=== PATIENT | female | born 1975 | race American Indian/Alaskan Native ===

== ENCOUNTER 2016-09-10 21:30 | Emergency (ER) | payer BC, OTHER ==
[2016-09-10] MEDS ORDERED: methylPREDNISolone Sodium Succinate 125 MG/2 ML SDV IVPUSH ONE (21:36)
[2016-09-10] MEDS ORDERED: Albuterol/Ipratropium 3.0-0.5 MG/3 ML Neb Soln NEB ONE ×2 (21:36→22:25)
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
[2016-09-10 22:11] LABS: CHLORIDE,CL 107 mmol/L (101-111); SODIUM,NA 141 mmol/L (135-145)
[2016-09-10] MEDS ORDERED: Sodium Chloride 0.9% 1,000 ML IV ONE (22:27)
[2016-09-10] MEDS ORDERED: Albuterol 6.7 GM Inhaler INH ONE ×2 (22:52)
[2016-09-10 23:00] VITALS: BP 108/69
--- NOTE | 2016-09-14 11:21 | EKG ---
09/10/2016 - AIDEN FERRARA - TIME: 2135 hours. EKG shows normal sinus rhythm, rate of 58 per minute. There is poor R-wave progression. There is left posterior fascicular block. [facility] /[id number]
== END 2016-09-10 23:12 | disposition home or self-care (01) ==
LOC: DL.ED 21:30
DX: J98.01 Acute bronchospasm (principal); Z91.018 Allergy to other foods; Z79.899 Other long term (current) drug therapy; Z86.2 Personal history of diseases of the blood and blood-forming organs and certain disorders involving the immune mechanism; Z98.890 Other specified postprocedural states; Z90.710 Acquired absence of both cervix and uterus
CPT/HCPCS: 36415; 71020; 80053; 84484; 85025; 85379; 93005; 94640; 96361; 96374; 99285; J2930; J7030; A9270-GY

== ENCOUNTER 2016-09-11 20:21 | Emergency (ER) | payer BC, OTHER ==
[2016-09-11] MEDS ORDERED: methylPREDNISolone Sodium Succinate 125 MG/2 ML SDV IVPUSH ONE (20:31)
[2016-09-11] MEDS ORDERED: Albuterol/Ipratropium 3.0-0.5 MG/3 ML Neb Soln NEB ONE ×2 (20:31→21:16)
[2016-09-11] MEDS ORDERED: Sodium Chloride 0.9% 1,000 ML IV ONE (20:31)
[2016-09-11 20:32] VITALS: BP 125/99
--- NOTE | 2016-09-11 20:34 | EDM.PDOC ---
ED HPI GENERAL MEDICAL PROBLEM - General Stated Complaint: CANT BREATH Time Seen by Provider: 09/11/16 20:32 Source of Information: Reports: Patient History Limitations: Reports: No Limitations - History of Present Illness INITIAL COMMENTS - FREE TEXT/NARRATIVE: was here last night for same. got better s/p IV Rx then had to work. today started feeling SOB returning tried albut inhaler didn't last long. 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 History: Reports: None Neurological History: Reports: None Psychiatric History: Reports: None Endocrine/Metabolic History: Reports: None Hematologic History: Reports: Anemia Immunologic History: Reports: None Oncologic (Cancer) History: Reports: None Dermatologic History: Reports: None - Past Surgical History Female Surgical History: Reports: Section, Hysterectomy Social & Family History - Tobacco Use Smoking Status *Q: Never Smoker Years of Tobacco use: 20 Packs/Tins Daily: 0.3 Second Hand Smoke Exposure: Yes - Caffeine Use Caffeine Use: Reports: Coffee - Recreational Drug Use Recreational Drug Use: No ED ROS GENERAL - Review of Systems Review Of Systems: ROS reveals no pertinent complaints other than HPI. ED EXAM, GENERAL - Physical Exam Exam: See Below Exam Limited By: Uncooperative General Appearance: Alert, WD/WN, Mild Distress, Other (cough spasms) Ears: Hearing Grossly Normal Throat/Mouth: Normal Voice, No Airway Compromise Head: Atraumatic Neck: Non-Tender, Full Range of Motion Respiratory/Chest: Decreased Breath Sounds, Rhonchi, Wheezing. No: Accessory Muscle Use, Retractions, Splinting Cardiovascular: Regular Rate, Rhythm GI/Abdominal: Soft, Non-Tender Neurological: Alert, Oriented, Normal Cognition, Normal Gait, No Motor/Sensory Deficits Psychiatric: Anxious Skin Exam: Warm, Dry Lymphatic: No Adenopathy Course - Vital Signs Last Recorded V/S: Last Vital Signs Temp 36.2 C 09/11/16 20:28 Pulse 70 09/11/16 20:28 Resp 18 09/11/16 20:28 BP 125/99 H 09/11/16 20:28 Pulse Ox 99 09/11/16 20:28 - Orders/Labs/Meds Orders: Active Orders 24 hr Category Date Time Status RT Aerosol Therapy [RC] ASDIRECTED Care 09/11/16 20:32 Active RT Aerosol Therapy [RC] ASDIRECTED Care 09/11/16 21:16 Active Meds: Medications Discontinued Medications Generic Name Dose Route Start Last Admin Trade Name Freq PRN Reason Stop Dose Admin Albuterol/Ipratropium 3 ml 09/11/16 20:31 09/11/16 20:41 Duoneb 3.0-0.5 Mg/3 Ml NEB 09/11/16 20:32 3 ml ONETIME ONE Administration Albuterol/Ipratropium 3 ml 09/11/16 21:16 09/11/16 21:30 Duoneb 3.0-0.5 Mg/3 Ml NEB 09/11/16 21:17 3 ml ONETIME ONE Administration Sodium Chloride 1,000 mls @ 999 mls/hr 09/11/16 20:31 09/11/16 20:50 Normal Saline IV 09/11/16 21:31 999 mls/hr .BOLUS ONE Administration Methylprednisolone Sodium Succinate 125 mg 09/11/16 20:31 09/11/16 20:51 Solu-Medrol IVPUSH 09/11/16 20:32 125 mg ONETIME ONE Administration - Re-Assessments/Exams Free Text/Narrative Re-Assessment/Exam: 09/11/16 21:52 s/p duoneb x2 + IV + solume = much better. wants to go home Departure - Departure Time of Disposition: 21:53 Disposition: Home, Self-Care 01 Condition: Good Clinical Impression: Bronchospasm, acute - Discharge Information Instructions: Bronchospasm, Adult, Jowa-[id number] Forms: ED Department Discharge Additional Instructions: 1) take neb treatment 8 to 12 hours as needed for wheezing 2) recheck if there is any change or concern rx given; duoneb tid to bid prn - My Orders Last 24 Hours: My Active Orders 09/11/16 20:32 RT Aerosol Therapy [RC] ASDIRECTED 09/11/16 21:16 RT Aerosol Therapy [RC] ASDIRECTED - Assessment/Plan Last 24 Hours: My Active Orders 09/11/16 20:32 RT Aerosol Therapy [RC] ASDIRECTED 09/11/16 21:16 RT Aerosol Therapy [RC] ASDIRECTED
[2016-09-11] MEDS ORDERED: Albuterol/Ipratropium 3.0-0.5 MG/3 ML Neb Soln INH ONE (22:00)
[2016-09-11] MEDS ORDERED: Albuterol/Ipratropium 3.0-0.5 MG/3 ML Neb Soln ONE (22:00)
== END 2016-09-11 22:06 | disposition home or self-care (01) ==
LOC: DL.ED 20:21
DX: J98.01 Acute bronchospasm (principal); Z91.018 Allergy to other foods; Z90.710 Acquired absence of both cervix and uterus
CPT/HCPCS: 94640; 96361; 96374; 99284; J2930; J7030

== ENCOUNTER 2016-10-13 20:35 | Emergency (ER) | payer BC, OTHER ==
[2016-10-13] MEDS ORDERED: Lidocaine 1% 30 ML SDV ONE (20:43)
[2016-10-13] MEDS ORDERED: Bacitracin Oint 1 GM U/D Packet TOP ONE (21:14)
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
== END 2016-10-13 21:51 | disposition home or self-care (01) ==
LOC: DL.ED 20:35
DX: S61.210A Laceration without foreign body of right index finger without damage to nail, initial encounter (principal); D64.9 Anemia, unspecified; F17.210 Nicotine dependence, cigarettes, uncomplicated; Z91.018 Allergy to other foods; Z79.899 Other long term (current) drug therapy; W27.0XXA Contact with workbench tool, initial encounter
CPT/HCPCS: 12004; 99282

== ENCOUNTER 2016-11-11 00:01 | Emergency (ER) | payer BC, OTHER ==
[2016-11-11 01:09] LABS: SODIUM,NA 140 mmol/L (135-145)
[2016-11-11 01:12] LABS: CHLORIDE,CL 105 mmol/L (101-111)
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
== END 2016-11-11 01:55 | disposition home or self-care (01) ==
LOC: DL.ED 00:01
DX: S00.03XA Contusion of scalp, initial encounter (principal); S00.431A Contusion of right ear, initial encounter; R07.81 Pleurodynia; V89.2XXA Person injured in unspecified motor-vehicle accident, traffic, initial encounter; F17.210 Nicotine dependence, cigarettes, uncomplicated
CPT/HCPCS: 36415; 70450; 71101; 72125; 80053; 81001; 81025; 82150; 83690; 85025; 99285; G0480

== ENCOUNTER 2016-11-12 01:35 | Emergency (ER) | payer BC, OTHER ==
[2016-11-12] MEDS ORDERED: Acetaminophen/HYDROcodone 325-10 MG Tab PO ONE ×2 (01:51→02:54)
[2016-11-12] MEDS ORDERED: Ondansetron 4 MG Tab.DIS PO ONE (01:51)
[2016-11-12] MEDS ORDERED: Acetaminophen/HYDROcodone 325-5 MG Tab PO ONE (01:54)
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
[2016-11-12] MEDS ORDERED: Acetaminophen/HYDROcodone 325-10 MG Tab ONE (02:54)
[2016-11-12 03:10] VITALS: BP 114/70
== END 2016-11-12 03:10 | disposition home or self-care (01) ==
LOC: DL.ED 01:35
DX: F07.81 Postconcussional syndrome (principal); G44.309 Post-traumatic headache, unspecified, not intractable; Z91.018 Allergy to other foods; F17.210 Nicotine dependence, cigarettes, uncomplicated
CPT/HCPCS: 70450; 99284; A9270

== ENCOUNTER 2019-02-20 02:16 | Emergency (ER) | payer MEDICAID, OTHER ==
[2019-02-20 02:25] VITALS: BP 126/81; PULSE 108
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
== END 2019-02-20 02:53 | disposition home or self-care (01) ==
LOC: DL.ED 02:16
DX: S00.03XA Contusion of scalp, initial encounter (principal); S00.511A Abrasion of lip, initial encounter; F17.210 Nicotine dependence, cigarettes, uncomplicated; Z90.710 Acquired absence of both cervix and uterus; Y04.0XXA Assault by unarmed brawl or fight, initial encounter
CPT/HCPCS: 99283

== ENCOUNTER 2019-12-25 00:11 | Emergency (ER) | payer MEDICAID, OTHER ==
[2019-12-25 00:35] VITALS: BP 129/86; PULSE 80
[2019-12-25 01:55] LABS: ANION GAP 13.7 mEq/L (7-13); CHLORIDE,CL 103 mmol/L (98-107); SODIUM,NA 140 mmol/L (136-145)
[2019-12-25] MEDS ORDERED: Amoxicillin/Clavulanate K 500-125 MG Tab PO ONE (01:58)
[2019-12-25] MEDS ORDERED: methylPREDNISolone Sodium Succinate 125 MG/2 ML SDV IM ONE (01:58)
--- NOTE | 2019-12-25 02:04 | EDM.PDOC ---
ED HPI GENERAL MEDICAL PROBLEM - General Chief Complaint: Respiratory Problem Stated Complaint: SOB, HEAD COLD Time Seen by Provider: 12/25/19 00:35 Source of Information: Reports: Patient History Limitations: Reports: No Limitations - History of Present Illness INITIAL COMMENTS - FREE TEXT/NARRATIVE: This 44 yo female patient reports to the ED with head congestion, cough and i ncreased shortness of breath over the past 2-3 days. The patient reports her shortness of breath has been getting worse. Duration: Day(s):, Constant, Getting Worse Location: Reports: Head, Chest Quality: Reports: Ache, Dull Severity: Moderate Improves with: Reports: None Worsens with: Reports: None Context: Reports: Other Associated Symptoms: Reports: No Other Symptoms Upper Back Pain Score (Numeric/FACES): 1 - Related Data Allergies Allergy/AdvReac Type Severity Reaction Status Date / Time tomatoe Allergy Rash Uncoded 12/25/19 00:35 Home Meds: Home Meds Multivitamin [One Daily Multivitamin] 1 each PO DAILY 09/11/16 [History] DULoxetine [Cymbalta] 60 mg PO DAILY 02/20/19 [History] Past Medical History - Past Health History Medical/Surgical History: Denies Medical/Surgical History HEENT History: Reports: None Cardiovascular History: Reports: None Respiratory History: Reports: None Gastrointestinal History: Reports: None Genitourinary History: Reports: None 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: 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 History: Reports: None Neurological History: Reports: Brain Injury Psychiatric History: Reports: None Endocrine/Metabolic History: Reports: None Hematologic History: Reports: Anemia Immunologic History: Reports: None Oncologic (Cancer) History: Reports: None Dermatologic History: Reports: None - Past Surgical History Head Surgeries/Procedures: Reports: None Female Surgical History: Reports: Section, Hysterectomy Social & Family History - Family History Family Medical History: Noncontributory - Tobacco Use Tobacco Use Status *Q: Current Every Day Tobacco User Years of Tobacco use: 20 Packs/Tins Daily: 0.5 Second Hand Smoke Exposure: Yes - Caffeine Use Caffeine Use: Reports: None - Recreational Drug Use Recreational Drug Use: No ED ROS GENERAL - Review of Systems Review Of Systems: Comprehensive ROS is negative, except as noted in HPI. ED EXAM, GENERAL - Physical Exam Exam: See Below Exam Limited By: No Limitations General Appearance: Alert, WD/WN, Mild Distress Eye Exam: Bilateral Eye: EOMI, Normal Inspection, PERRL Ears: Normal External Exam, Normal Canal, Hearing Grossly Normal, Normal TMs Nose: Normal Inspection, Normal Mucosa, No Blood Throat/Mouth: Normal Inspection, Normal Lips, Normal Teeth, Normal Gums, Normal Oropharynx, Normal Voice, No Airway Compromise Head: Sinus Tenderness Neck: Normal Inspection, Supple, Non-Tender, Full Range of Motion Respiratory/Chest: Decreased Breath Sounds, Wheezing Cardiovascular: Normal Peripheral Pulses, Regular Rate, Rhythm, No Edema, No Gallop, No JVD, No Murmur, No Rub GI/Abdominal: Normal Bowel Sounds, Soft, Non-Tender, No Organomegaly, No Distention, No Abnormal Bruit, No Mass (Female) Exam: Deferred Rectal (Female) Exam: Deferred Back Exam: Normal Inspection, Full Range of Motion, NT Extremities: Normal Inspection, Normal Range of Motion, Non-Tender, Normal Capillary Refill, No Pedal Edema Neurological: Alert, Oriented, CN II-XII Intact, Normal Cognition, Normal Gait, Normal Reflexes, No Motor/Sensory Deficits Psychiatric: Normal Affect, Normal Mood Skin Exam: Warm, Dry, Intact, Normal Color, No Rash Lymphatic: No Adenopathy Course - Vital Signs Last Recorded V/S: Last Vital Signs Temp 36.4 C 12/25/19 00:29 Pulse 80 12/25/19 00:29 Resp 18 12/25/19 00:29 BP 129/86 12/25/19 00:29 Pulse Ox 98 12/25/19 00:29 - Orders/Labs/Meds Orders: Active Orders 24 hr Category Date Time Status Chest 2V [CR] Urgent Exams 12/25/19 00:49 Ordered CULTURE BLOOD [BC] Stat Lab 12/25/19 01:20 Received Amoxicillin/Clavulanate K [Augmentin 500 MG\125 MG] Med 12/25/19 01:58 Once 1 tab PO ONETIME ONE methylPREDNISolone Sod Succ [Solu-MEDROL] Med 12/25/19 01:58 Once 125 mg IM ONETIME ONE Labs: Laboratory Tests 12/25/19 12/25/19 12/25/19 Range/Units 00:53 01:20 01:20 WBC 9.6 (5.0-10.0) 10^3/uL RBC 4.39 (4.2-5.4) 10^6/uL Hgb 14.5 (12.0-16.0) g/dL Hct 40.9 (37.0-47.0) % MCV 93.2 (80-100) fL MCH 33.0 (27.0-34.0) pg MCHC 35.5 H (33.0-35.0) g/dL Plt Count 265 (150-450) 10^3/uL Neut % (Auto) 56.6 (42.2-75.2) % Lymph % (Auto) 28.1 (20.5-50.1) % [place] % (Auto) 9.4 H (2-8) % Eos % (Auto) 5.5 H (1.0-3.0) % Baso % (Auto) 0.4 (0.0-1.0) % Sodium 140 (136-145) mmol/L Potassium 3.7 (3.5-5.1) mmol/L Chloride 103 (98-107) mmol/L Carbon Dioxide 27 (21-32) mmol/L Anion Gap 13.7 H (7-13) mEq/L BUN 15 (7-18) mg/dL Creatinine 0.52 L (0.55-1.02) mg/dL Est Cr Clr Drug Dosing 116.73 mL/min Estimated GFR (MDRD) > 60 BUN/Creatinine Ratio 28.8 (No establ ref range) Glucose 100 H (74-99) mg/dL Lactic Acid (0.4-2.0) mmol/L Calcium 9.1 (8.5-10.1) mg/dL Total Bilirubin 0.5 (0.2-1.0) mg/dL AST 19 (15-37) U/L ALT 39 (14-59) U/L Alkaline Phosphatase 124 H (46-116) U/L Total Protein 7.3 (6.4-8.2) g/dL Albumin 4.2 (3.4-5.0) g/dL Globulin 3.1 Albumin/Globulin Ratio 1.4 SARS CoV-2 RNA Rapid TREVON Negative (NEGATIVE) 12/25/19 Range/Units 01:20 WBC (5.0-10.0) 10^3/uL RBC (4.2-5.4) 10^6/uL Hgb (12.0-16.0) g/dL Hct (37.0-47.0) % MCV (80-100) fL MCH (27.0-34.0) pg MCHC (33.0-35.0) g/dL Plt Count (150-450) 10^3/uL Neut % (Auto) (42.2-75.2) % Lymph % (Auto) (20.5-50.1) % [place] % (Auto) (2-8) % Eos % (Auto) (1.0-3.0) % Baso % (Auto) (0.0-1.0) % Sodium (136-145) mmol/L Potassium (3.5-5.1) mmol/L Chloride (98-107) mmol/L Carbon Dioxide (21-32) mmol/L Anion Gap (7-13) mEq/L BUN (7-18) mg/dL Creatinine (0.55-1.02) mg/dL Est Cr Clr Drug Dosing mL/min Estimated GFR (MDRD) BUN/Creatinine Ratio (No establ ref range) Glucose (74-99) mg/dL Lactic Acid 0.6 (0.4-2.0) mmol/L Calcium (8.5-10.1) mg/dL Total Bilirubin (0.2-1.0) mg/dL AST (15-37) U/L ALT (14-59) U/L Alkaline Phosphatase (46-116) U/L Total Protein (6.4-8.2) g/dL Albumin (3.4-5.0) g/dL Globulin Albumin/Globulin Ratio SARS CoV-2 RNA Rapid TREVON (NEGATIVE) Departure - Departure Time of Disposition: 02:04 Disposition: Home, Self-Care 01 Condition: Fair Clinical Impression: Bronchitis Acute sinusitis Qualifiers: Sinusitis location: maxillary Recurrence: non-recurrent Qualified Code(s): J01.00 - Acute maxillary sinusitis, unspecified - Discharge Information *PRESCRIPTION DRUG MONITORING PROGRAM REVIEWED*: Not Applicable *COPY OF PRESCRIPTION DRUG MONITORING REPORT IN PATIENT ASHANTI: Not Applicable Instructions: Acute Bronchitis, Adult, [id number], Sinusitis, Adult, [id number] Care Plan Goals: The patient was advised of the examination, lab and x-ray results during the visit. The patient was given an oral dose of Augmentin and an injection of SoluMedrol while in the ED. The patient was discharged with a script for Augme ntin (500/125) #20 to take 1 by mouth 2 times per day for 10 days and Prednisone (20 mg) #10 to take 2 by mouth daily with food for 5 days. If the patient has any additional symptoms or concerns, the patient should either return to the emergency department or visit her primary care facility. Sepsis Event Note (ED) - Evaluation Sepsis Screening Result: No Definite Risk - Focused Exam Vital Signs: Vital Signs Temp Pulse Resp BP Pulse Ox 12/25/19 00:29 36.4 C 80 18 129/86 98 - My Orders Last 24 Hours: My Active Orders 12/25/19 00:49 Chest 2V [CR] Urgent 12/25/19 01:20 CULTURE BLOOD [BC] Stat 12/25/19 01:58 Amoxicillin/Clavulanate K [Augmentin 500 MG\125 MG] 1 tab PO ONETIME ONE methylPREDNISolone Sod Succ [Solu-MEDROL] 125 mg IM ONETIME ONE - Assessment/Plan Last 24 Hours: My Active Orders 12/25/19 00:49 Chest 2V [CR] Urgent 12/25/19 01:20 CULTURE BLOOD [BC] Stat 12/25/19 01:58 Amoxicillin/Clavulanate K [Augmentin 500 MG\125 MG] 1 tab PO ONETIME ONE methylPREDNISolone Sod Succ [Solu-MEDROL] 125 mg IM ONETIME ONE
--- NOTE | 2019-12-25 02:05 | CR ---
PROCEDURE INFORMATION: Exam: XR Chest, 2 Views Exam date and time: 12/25/2019 1:42 AM Age: 44 years old Clinical indication: Chest pain; Type not specified; Additional info: Short of breath TECHNIQUE: Imaging protocol: XR of the chest Views: 2 views. COMPARISON: No relevant prior studies available. FINDINGS: Lungs: Unremarkable. No consolidation. Pleural space: Unremarkable. No pleural effusion. No pneumothorax. Heart/Mediastinum: Unremarkable. No cardiomegaly. Bones/joints: Unremarkable. IMPRESSION: No acute findings.
== END 2019-12-25 02:27 | disposition home or self-care (01) ==
LOC: DL.ED 00:11
DX: J01.00 Acute maxillary sinusitis, unspecified (principal); J40 Bronchitis, not specified as acute or chronic; Z20.828 Contact with and (suspected) exposure to other viral communicable diseases; Z91.018 Allergy to other foods; F17.210 Nicotine dependence, cigarettes, uncomplicated; Z90.710 Acquired absence of both cervix and uterus
CPT/HCPCS: 36415; 71046; 80053; 83605; 85025; 87040; 87635; 96372; 99285; A9270; J2930; U0002

== ENCOUNTER 2020-01-31 21:13 | Emergency (ER) | payer MEDICAID, OTHER ==
[2020-01-31 21:37] VITALS: BP 112/82; PULSE 98
--- NOTE | 2020-01-31 21:38 | EDM.PDOC ---
ED HPI GENERAL MEDICAL PROBLEM - General Chief Complaint: Headache Stated Complaint: DIZINESS, SINUSES, HEADACHE, Time Seen by Provider: 01/31/20 21:15 Source of Information: Reports: Patient History Limitations: Reports: No Limitations - History of Present Illness INITIAL COMMENTS - FREE TEXT/NARRATIVE: This 44 yo female patient reports to the ED with increased shortness of breath, chest congestion and head congestion. The patient reports her symptoms were very mild yesterday, but got much worse today. The patient has a history of asthma. The patient reports no known exposure to COVID. Onset Date: 01/30/20 Duration: Constant, Getting Worse Location: Reports: Head, Chest Quality: Reports: Ache, Dull Severity: Moderate Improves with: Reports: None Worsens with: Reports: None Context: Reports: Other Associated Symptoms: Reports: Cough, Shortness of Breath - Related Data Allergies Allergy/AdvReac Type Severity Reaction Status Date / Time tomatoe Allergy Rash Uncoded 12/25/19 00:35 Home Meds: Home Meds Multivitamin [One Daily Multivitamin] 1 each PO DAILY 09/11/16 [History] DULoxetine [Cymbalta] 60 mg PO DAILY 02/20/19 [History] Past Medical History - Past Health History Medical/Surgical History: Denies Medical/Surgical History HEENT History: Reports: None Cardiovascular History: Reports: None Respiratory History: Reports: None Gastrointestinal History: Reports: None Genitourinary History: Reports: 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 History: Reports: None Neurological History: Reports: Brain Injury Psychiatric History: Reports: None Endocrine/Metabolic History: Reports: None Hematologic History: Reports: Anemia Immunologic History: Reports: None Oncologic (Cancer) History: Reports: None Dermatologic History: Reports: None - Past Surgical History Head Surgeries/Procedures: Reports: None Female Surgical History: Reports: Section, Hysterectomy Social & Family History - Family History Family Medical History: No Pertinent Family History - Caffeine Use Caffeine Use: Reports: None ED ROS GENERAL - Review of Systems Review Of Systems: Comprehensive ROS is negative, except as noted in HPI. ED EXAM, GENERAL - Physical Exam Exam: See Below Exam Limited By: No Limitations General Appearance: Alert, WD/WN, Mild Distress Eye Exam: Bilateral Eye: EOMI, Normal Inspection, PERRL Ears: Normal External Exam, Normal Canal, Hearing Grossly Normal, Normal TMs Nose: Normal Inspection, Normal Mucosa, No Blood Throat/Mouth: Normal Inspection, Normal Lips, Normal Teeth, Normal Gums, Normal Oropharynx, Normal Voice, No Airway Compromise Head: Sinus Tenderness Neck: Normal Inspection, Supple, Non-Tender, Full Range of Motion Respiratory/Chest: Decreased Breath Sounds, Rhonchi Cardiovascular: Normal Peripheral Pulses, Regular Rate, Rhythm, No Edema, No Gallop, No JVD, No Murmur, No Rub GI/Abdominal: Normal Bowel Sounds, Soft, Non-Tender, No Organomegaly, No Distention, No Abnormal Bruit, No Mass (Female) Exam: Deferred Rectal (Female) Exam: Deferred Back Exam: Normal Inspection, Full Range of Motion, NT Extremities: Normal Inspection, Normal Range of Motion, Non-Tender, Normal Capillary Refill, No Pedal Edema Neurological: Alert, Oriented, CN II-XII Intact, Normal Cognition, Normal Gait, Normal Reflexes, No Motor/Sensory Deficits Psychiatric: Normal Affect, Normal Mood Skin Exam: Warm, Dry, Intact, Normal Color, No Rash Lymphatic: No Adenopathy Course - Vital Signs Last Recorded V/S: Last Vital Signs Temp 36.7 C 01/31/20 21:35 Pulse 98 01/31/20 21:35 Resp 18 01/31/20 21:35 BP 112/82 01/31/20 21:35 Pulse Ox 98 01/31/20 21:35 - Orders/Labs/Meds Labs: Laboratory Tests 01/31/20 Range/Units 21:37 SARS-CoV-2 RNA (TREVON) Negative (NEGATIVE) Meds: Medications Discontinued Medications Generic Name Dose Route Start Last Admin Trade Name Everq PRN Reason Stop Dose Admin Amoxicillin/Clavulanate Potassium 1 tab 01/31/20 22:44 Augmentin 500 Mg\125 Mg PO 01/31/20 22:45 ONETIME ONE Prednisone 40 mg 01/31/20 22:44 Prednisone PO 01/31/20 22:45 ONETIME ONE Departure - Departure Time of Disposition: 22:47 Disposition: Home, Self-Care 01 Condition: Fair Clinical Impression: Bronchitis - Discharge Information *PRESCRIPTION DRUG MONITORING PROGRAM REVIEWED*: Not Applicable *COPY OF PRESCRIPTION DRUG MONITORING REPORT IN PATIENT ASHANTI: Not Applicable Forms: ED Department Discharge Care Plan Goals: The patient was advised of the examination and lab results during the visit. The patient was given an oral dose of Augmentin and Prednisone while in the ED. The patient was discharged with a script for Augmentin (500/125) #20 to take 1 by m outh 2 times per day for 10 days and Prednisone (20 mg) #10 to take 2 by mouth daily with food. If the patient has any additional symptoms or concerns, the patient should visit her primary care facility or return to the emergency department. Sepsis Event Note (ED) - Focused Exam Vital Signs: Vital Signs Temp Pulse Resp BP Pulse Ox 01/31/20 21:35 36.7 C 98 18 112/82 98
[2020-01-31] MEDS ORDERED: predniSONE 20 MG Tab PO ONE (22:44)
[2020-01-31] MEDS ORDERED: Amoxicillin/Clavulanate K 500-125 MG Tab PO ONE (22:44)
== END 2020-01-31 22:59 | disposition home or self-care (01) ==
LOC: DL.ED 21:13
DX: J40 Bronchitis, not specified as acute or chronic (principal); Z20.828 Contact with and (suspected) exposure to other viral communicable diseases; Z91.018 Allergy to other foods; Z79.899 Other long term (current) drug therapy
CPT/HCPCS: 87635; 99283; A9270; J7512; U0002

== ENCOUNTER 2022-02-22 04:59 | Emergency (ER) | payer MEDICAID, SELFPAY ==
[2022-02-22] MEDS ORDERED: Albuterol/Ipratropium 3.0-0.5 MG/3 ML Neb Soln INH ONE (05:00)
[2022-02-22] MEDS ORDERED: Albuterol/Ipratropium 3.0-0.5 MG/3 ML Neb Soln NEB ONE (05:05)
[2022-02-22] MEDS ORDERED: methylPREDNISolone Sodium Succinate 125 MG/2 ML SDV IM ONE (05:16)
[2022-02-22 05:20] VITALS: BP 144/86; PULSE 108
[2022-02-22 05:59] LABS: RESPIRATORY SYNCYTIAL VIR NAA NEGATIVE (NEGATIVE)
[2022-02-22] MEDS ORDERED: Albuterol/Ipratropium 3.0-0.5 MG/3 ML Neb Soln ONE (05:59)
[2022-02-22] MEDS ORDERED: Albuterol 6.7 GM Inhaler INH ONE (05:59)
[2022-02-22 06:00] LABS: CORONAVIRUS COVID-19 NAA POSITIVE (NEGATIVE)
== END 2022-02-22 06:21 | disposition home or self-care (01) ==
LOC: DL.ED 04:59
DX: U07.1 COVID-19 (principal); Z91.018 Allergy to other foods
CPT/HCPCS: 0241U; 36415; 71045; 85025; 94640; 96372; 99284; 99285; A9270; J2930; J7620-GY

== ENCOUNTER 2022-03-08 00:55 | Emergency (ER) | payer MEDICAID ==
[2022-03-08] MEDS ORDERED: Albuterol 0.083% 2.5 MG/3 ML Neb Soln INH ONE (00:56)
[2022-03-08] MEDS ORDERED: predniSONE 20 MG Tab PO ONE (00:56)
[2022-03-08] MEDS ORDERED: Albuterol 0.083% 2.5 MG/3 ML Neb Soln ONE ×2 (01:01→02:09)
[2022-03-08] MEDS ORDERED: Albuterol/Ipratropium 3.0-0.5 MG/3 ML Neb Soln ONE (01:02)
[2022-03-08] MEDS ORDERED: Albuterol/Ipratropium 3.0-0.5 MG/3 ML Neb Soln NEB ONE (01:02)
[2022-03-08] MEDS ORDERED: methylPREDNISolone Sodium Succinate 125 MG/2 ML SDV IM ONE (01:04)
[2022-03-08 01:46] VITALS: BP 124/92; PULSE 112
[2022-03-08] MEDS ORDERED: Albuterol 6.7 GM Inhaler INH ONE (02:09)
[2022-03-08] MEDS ORDERED: predniSONE 20 MG Tab ONE (02:09)
== END 2022-03-08 02:22 | disposition home or self-care (01) ==
LOC: DL.ED 00:55
DX: J45.41 Moderate persistent asthma with (acute) exacerbation (principal); Z91.018 Allergy to other foods; Z79.899 Other long term (current) drug therapy; Z90.710 Acquired absence of both cervix and uterus
CPT/HCPCS: 94640; 96372; 99284; A9270; J2930; J7512; J7613-GY; J7620-GY

== ENCOUNTER 2022-03-12 19:30 | Emergency (ER) | payer MEDICAID ==
[2022-03-12 19:54] VITALS: BP 106/65; PULSE 72
[2022-03-12] MEDS ORDERED: Lidocaine 1% 10 ML MDV INJECT ONE (21:38)
[2022-03-12] MEDS ORDERED: Cephalexin 500 MG Cap PO ONE (21:53)
[2022-03-12] MEDS ORDERED: Sulfamethoxazole/Trimethoprim 800-160 MG Tab PO ONE (21:53)
== END 2022-03-12 22:16 | disposition home or self-care (01) ==
LOC: DL.ED 19:30
DX: L02.11 Cutaneous abscess of neck (principal); J45.909 Unspecified asthma, uncomplicated; Z87.891 Personal history of nicotine dependence; Z91.018 Allergy to other foods
CPT/HCPCS: 10060; 87070; 87077; 87186; 99283; A9270; J3490